=== PATIENT | male | born 1955 | race Caucasian/White ===

== ENCOUNTER 2017-01-08 05:35 | Inpatient (IN) | payer MEDICARE, OTHER ==
[2017-01-04 16:35] LABS: % IMMATURE GRANULYOCYTES 0.5 % (0.0-1.1); ABSOLUTE IMMATURE GRANULOCYTES 0.03 10^3/uL (0.00-0.10); ADD DIFF? NO; ADD MORPH? NO; ADD SCAN? NO; ATYPICAL LYMPHOCYTE FLAG 0 (0-99); FRAGMENT RBC FLAG 0 (0-99); HEMATOCRIT 51.5 % (40.0-51.0); LEFT SHIFT FLG 0 (0-99); LIPEMIA HEMOLYSIS FLAG 90 (0-99); MEAN CELL HEMOGLOBIN 32.7 pg (27.9-34.1); MEAN CELL VOLUME 93.6 fL (81.5-99.8); MEAN PLATELET VOLUME 9.1 fL (8.7-11.7); PLATELET CLUMPS FLAG 0 (0-99); PLATELET COUNT 174 10^3/uL (150-400); RED CELL DISTRIBUTION WIDTH 12.8 % (11.5-15.2)
[2017-01-04 17:08] LABS: ANION GAP 11 mEq/L (8-16); CALCIUM 9.2 mg/dL (8.5-10.4); CARBON DIOXIDE 28 mEq/l (22-31); CHLORIDE 99 mEq/L (97-110); CREATININE 1.2 mg/dL (0.7-1.3); GLOMERULAR FILTRATION RATE > 60; GLUCOSE 108 mg/dL (70-100); POTASSIUM 4.5 mEq/L (3.5-5.2); SODIUM 138 mEq/L (134-144)
--- NOTE | 2017-01-07 15:06 | GHP ---
[f rep st] PREOP HISTORY AND PHYSICAL DATE OF ADMISSION: 01/08/2017 He will be an a.m. admission [facility] 08, 2017. PROBLEM: Left hip arthritis. HISTORY OF PRESENT ILLNESS: The patient is a 61-year-old man admitted for a left total hip arthropl asty. He has had a 2 to 3 month history of severe bilateral hip pain. His left hip is more painful than the right. He is having daily pain and night pain. He is walking with a cane. Ambulation is difficult. His activities of daily living are significantly restricted because of his hip pain. Darrell omalley has trouble putting on shoes and socks on the left foot. PAST MEDICAL HISTORY: He has chronic pain syndrome secondary to chronic back pain. In 2013, he had a pulmonary embolism. No history of heart disease, stents, hepatitis. He does not have sleep apne a, but he uses oxygen at night. CURRENT MEDICATIONS: Testosterone gel. He uses extended release morphine and oxycodone for chronic back pain. DRUG ALLERGIES: None. METAL ALLERGY: None. LATEX ALLERGY: None. PAST SURGICAL HISTORY: He has a left total knee arthroplasty. SOCIAL HISTORY: The patient is . He does not smoke cigarettes. He occasionally drinks alc ohol. He is retired on disability. He lives in [place], but he is staying with a friend calixto gomez [place]. FAMILY HISTORY: Positive for diabetes. PHYSICAL EXAMINATION: VITAL SIGNS: Height 6 feet 2 inches. Weight 210 pounds. BMI 27. HEENT: E yes: Conjunctivae and sclerae are clear. Pupils are round and reactive. Mouth: Good oral hygiene . No loose teeth. CHEST: Clear. HEART: Regular rhythm. No murmurs. EXTREMITIES: Pertinent fi ndings limited to his left hip. He has full hip extension, 90 degrees of flexion. External rotatio n 20 degrees. Internal rotation 0 degrees. Abduction 20 degrees. He has a lot of pain at the extr emes of motion. IMAGING: His films show severe bilateral hip degenerative arthritis. His right hip is slightly armond rter than the left. He is bone on bone in both hips. He has a degenerative cyst in his right femor al head. IMPRESSION ON ADMISSION: 1. Bilateral hip degenerative arthritis. He is prepared for a left total hip arthroplasty. 2. Chronic pain syndrome secondary to his back. 3. History of pulmonary embolism. 4. Status post left total knee arthroplasty. 5. The patient uses supplemental oxygen at night. PLAN: He will undergo a left total hip arthroplasty. The surgery has been described to him, includ ing the risks, complications, expectations, and recovery time. I have talked to him about the risk of dislocation, leg length inequality, infection, and sciatic nerve injury. He understands that he is relatively young for a total hip arthroplasty, and might need revision surgery in his future. I intend to lengthen his left leg and I will make up the length when I do his opposite leg in the near future. I will be managing his postoperative pain, but once he is out of the postoperative period, Dr. Dennis Mendoza, in [place], will resume management of his chronic pain. All his questions have been answered, and he consents to surgery. Copy requested to: Dr. Dennis Mendoza [place], [place] /[id number]/MODL
[2017-01-08] MEDS ORDERED: NS IV ONE (06:00)
[2017-01-08] MEDS ORDERED: ACETAMINOPHEN 325 MG TAB PO ONE (06:00)
[2017-01-08] MEDS ORDERED: DEXAMETHASONE 4 MG/ML VIAL IVP ONE (06:00)
[2017-01-08] MEDS ORDERED: POVIDONE-IODINE 20 ML in SODIUM CL IRRIG SOLUTION 500 ML IRR ONE (06:00)
[2017-01-08] MEDS ORDERED: CEFAZOLIN 2 GM/DEXTR 100 ML IV ONE (06:00)
[2017-01-08] MEDS ORDERED: FAMOTIDINE 20 MG TAB PO ONE (06:00)
[2017-01-08] MEDS ORDERED: TRANEXAMIC ACID IV ONE (06:00)
[2017-01-08] MEDS ORDERED: ROPI/epiNEPH/KETOROLAC JOINT COCKTAIL IU ONE (06:00)
[2017-01-08] MEDS ORDERED: CHLORHEXIDINE GLUC HIBICLENS 118 ML BTL TP ONE (06:00)
[2017-01-08] MEDS ORDERED: LIDOCAINE 1% 5 ML SDV ONE (06:19)
[2017-01-08] MEDS ORDERED: SKIN ADHESIVE (DERMABOND) 1 EACH TP ONE (06:45)
[2017-01-08] MEDS ORDERED: ceFAZolin 1 GM/5 ML SYR ONE (06:46)
[2017-01-08] MEDS ORDERED: MIDAZOLAM 2 MG/2 ML VIAL ONE (07:06)
[2017-01-08] MEDS ORDERED: fentaNYL 100 MCG/2 ML INJ ONE ×4 (07:07→09:21)
[2017-01-08] MEDS ORDERED: PROPOFOL 200 MG/20 ML VIAL ONE (07:07)
[2017-01-08] MEDS ORDERED: PROPOFOL/EMULSION 500 MG/50 ML BOTTLE IV ONE ×5 (07:07→08:30)
[2017-01-08] MEDS ORDERED: ONDANSETRON 4 MG/2 ML VIAL ONE (08:11)
[2017-01-08] MEDS ORDERED: HYDROmorphONE/DILAUDID 2 MG/ML INJ ONE ×2 (08:49→09:21)
--- NOTE | 2017-01-08 08:55 | POSTOPPROG ---
Post Op Note Date of Operation: 01/08/17 Surgeon: Marvel Lopez [employer] Technician: Sandra/Puneet Anesthesiologist: Martínez Anesthesia: IV Sedation, Spinal Post-op Diagnosis: L hip arthritis Procedure: L JESUS Inf/Abcess present in the surg proc area at time of surgery?: No EBL: [id number]
[2017-01-08] MEDS ORDERED: FUROSEMIDE 20 MG TAB PO PRN (09:14)
[2017-01-08] MEDS ORDERED: POLYETHYLENE GLYCOL 3350 17 GM PKT PO PRN (09:15)
[2017-01-08] MEDS ORDERED: LACTULOSE 20 GM/30 ML UDCUP PO PRN (09:15)
[2017-01-08] MEDS ORDERED: ONDANSETRON 4 MG/2 ML VIAL IVP PRN (09:15)
[2017-01-08] MEDS ORDERED: PHARMACY PAIN CONSULT 1 EA MISC PRN (09:15)
[2017-01-08] MEDS ORDERED: MAGNESIUM HYDROXIDE 30 ML UDCUP PO PRN (09:15)
[2017-01-08] MEDS ORDERED: METOCLOPRAMIDE 10 MG/2 ML VIAL IVP PRN (09:15)
[2017-01-08] MEDS ORDERED: DIPHENOXYLATE/ATROPINE LOMOTIL 1 TAB PO PRN (09:15)
[2017-01-08] MEDS ORDERED: ONDANSETRON DISINTEGRATING 4 MG TAB PO PRN (09:15)
[2017-01-08] MEDS ORDERED: NS 500 ML IV PRN (09:15)
[2017-01-08] MEDS ORDERED: PROMETHAZINE HCL 25 MG SUPPR PR PRN (09:15)
[2017-01-08] MEDS ORDERED: TEMAZEPAM 15 MG CAP PO PRN (09:15)
[2017-01-08] MEDS ORDERED: BISACODYL 10 MG SUPP PR PRN (09:15)
[2017-01-08] MEDS ORDERED: diphenhydrAMINE 25 MG CAP PO PRN (09:15)
[2017-01-08] MEDS ORDERED: LR 1,000 ML IV SCH (09:30)
[2017-01-08] MEDS ORDERED: KETOROLAC 30 MG/1 ML SDV ONE (09:34)
--- NOTE | 2017-01-08 10:04 | GOP ---
[f rep st] OPERATIVE REPORT DATE OF OPERATION: 01/08/2017 SURGEON: Marvel Lopez MD APARTMENT LOCATOR: Tay Flores, TUBE WORKER and Reji Teixeira, PAC. ANESTHESIA: Combination of Marcaine, spinal, and IV sedation ANESTHESIOLOGIST: Mundo Soliz MD. PREOPERATIVE DIAGNOSIS: Left hip severe arthritis. POSTOPERATIVE DIAGNOSIS: Left hip severe arthritis. PROCEDURE PERFORMED: Left total hip arthroplasty, Oxinium femoral head on highly cross-linked polye thylene cup liner. FINDINGS: DESCRIPTION OF PROCEDURE: The patient was given 2 g of IV Ancef preoperatively within 60 minutes of surgery. He also received IV tranexamic acid at a dose of 20 mg/kg. He was placed on the operatin g room table and given spinal anesthesia with Marcaine by Dr. Soliz. He was then placed supine and given IV sedation. A Chauhan catheter was not used. A ANT stocking and SCD were applied to the nonop erative leg. He was rolled to the right lateral decubitus position. The position was secured with the pegboard table attachment. An axillary roll was used, and all pressure points were carefully pa dded. I was careful to lock his pelvis in a rigid vertical position. His perineum was isolated wit h plastic adhesive drapes. The left hip and left lower extremity were prepped with ChloraPrep. The y were draped free using sterile sheets, stockinette, and Ioban plastic drapes. The World Health Organization time-out was performed to verify the correct surgical side and the cor rect patient identity. The [place] time-out was also performed. I made a 5-inch straight oblique posterolateral hip skin incision. The subcutaneous tissues were sh arply divided, and hemostasis was obtained using electrocautery. His fascia juan pablo was identified. I split a short portion of the fascia juan pablo along the axis of its fibers. I then curved posteriorly a nd proximally and split the fascia of the gluteus hilda and bluntly split the muscle fibers in airam e with their orientation. The Charnley self-retaining retractor was inserted. The sciatic nerve wa s located, partially exposed and protected throughout the procedure. The external rotators and the posterior hip capsule were divided as separate layers at the base of the femoral neck, tagged, and r eflected posteriorly. I left the quadratus intact. A smooth 8-inch Steinmann pin was inserted vert ically into the ilium superior to the acetabulum. An 8-inch drill bit was inserted vertically into the greater trochanter and parallel to the first pin. The distance between the 2 was measured for l eg length reference. His femoral head was dislocated posteriorly. Severe degenerative changes were present on the femoral head. The femoral neck was osteotomized at the appropriate level and inclin ation. I was careful to preserve all the posterior capsule and most of the anterior capsule. The remnant o f his damaged labrum was excised. I prepared the femur first. This allowed me to vat skimmer the amount of natural femoral neck anteversion. This, in turn, allowed me to later determine the correct amoun t of cup anteversion. He had approximately 10 degrees of natural femoral neck anteversion. The can al was opened laterally with a box chisel. I reamed and broached sequentially up to size 13. I use d a size 13 broach as a trial stem. I was careful to lateralize adequately. Appropriate retractors were inserted to expose the acetabulum. The acetabulum was reamed sequential ly up to 55 mm. I selected a 56 mm Lincoln and Nephew solid backed hemispherical shell. This was tap ped securely into place in the proper degree of inclination and anteversion. I used the transverse acetabular ligament and other acetabular bony landmarks to help me properly orient the cup. I inser ant the screw-in metal dome hole plug. I performed a series of trial reductions to determine length and stability. I concluded that the si ze 13 stem with a +4 mm neck length, a 36 mm head, and a 20-degree lip trial liner gave me the prope r combination of appropriate length and good anterior and posterior stability. I was intentionally lengthening him to make him more stable. I intend to do his other hip in the near future, and I nader l regain that length. The 20-degree lipped Lincoln and Nephew R3 highly cross-linked polyethylene liner was inserted and tap ped securely into place. I selected a Lincoln and Nephew Synergy stem, and size 13 with standard offs et. This was inserted press-fit and was very tight. I did 1 final trial reduction and confirmed th at the +8 mm neck length with a 36 mm head was the proper combination. The Lincoln and Nephew Oxinium head with an outside diameter of 36 mm and a neck length of +4 mm was tapped securely onto the kimberly n trunnion. His acetabulum was irrigated and cleaned, and hip was reduced 1 final time. He had exc ellent anterior and posterior stability and appropriate lengthening. 40 mL of a joint anesthetic cocktail were injected into the capsule, the deep musculature, and the s ubcutaneous tissues along the skin edges. The joint was thoroughly irrigated 1 final time with a di lute Betadine solution. His sciatic nerve was reinspected and looked unharmed. The external rotato rs and the posterior hip capsule were repaired in separate layers with #2 FiberWire sutures through drill holes in the greater trochanter. This provided a strong posterior capsular and external rotat or repair. The fascia juan pablo was repaired first with several [id number] #2 FiberWire sutures fol lowed by a running #2 barbed Ethicon Stratafix PDO suture. The subcutaneous tissues were closed wit h a running 0 barbed Ethicon Stratafix Monoderm suture. The skin was closed with a running 3-0 kiel ed Ethicon Stratafix Monoderm subcuticular suture. Skin edges reapproximated and sealed with Dermab ond glue. The wound was covered with a strip of Telfa, and everything was held in place with a piec e of clear plastic Tegaderm. A long-leg ANT stocking and SCD were applied to the left lower extremity. He wore a stocking and SC D on the opposite leg during the procedure. An abduction pillow was placed between his knees. He w as awakened from anesthesia and rolled to the supine position on his [facility]. He was taken to PACU in satisfactory condition. There were no recognized intraoperative complications. The estimated blood loss was about 400 mL. The sponge and needle count were correct on 2 occasions. I used a Lincoln and Nephew R3 solid-backed hemispherical shell with an outside diameter of 56 mm. Th e liner was a Lincoln and Nephew R3 twenty-degree lipped highly cross-linked liner with an inside diam eter of 36 mm. The femoral component was a standard offset Lincoln and Nephew Synergy stem in a size 13 and press-fit. The femoral head was a Lincoln and Nephew Oxinium head with a +4 mm neck length and a 36 mm outside diameter. Tay Flores and John Teixeira acted as surgical first assistants. Their assistance was a medical necessity. Copy requested to: Dr. Dennis Mendoza [place] /[id number]/MODL
[2017-01-08] MEDS: CYCLOBENZAPRINE 10 MG TAB PO PRN ×2 (10:52→19:01)
[2017-01-08] MEDS: TRANEXAMIC ACID 650 MG TAB PO SCH ×3 (11:15→22:23)
[2017-01-08] MEDS: traMADol 50 MG TAB PO PRN ×2 (11:15→17:33)
[2017-01-08] MEDS: ACETAMINOPHEN 325 MG TAB PO SCH ×2 (11:16→17:32)
[2017-01-08] MEDS ORDERED: POTASSIUM CL 20 MEQ TAB PO PRN (11:30)
[2017-01-08] MEDS: ceFAZolin 2 GM/DEXTROSE 100 ML IV SCH ×2 (14:55→22:23)
[2017-01-08] MEDS: KETOROLAC 30 MG/1 ML SDV IVP PRN (16:28)
[2017-01-08] MEDS: FAMOTIDINE 20 MG TAB PO SCH (20:22)
[2017-01-08] MEDS: morphINE SR 30 MG TAB PO SCH (20:23)
[2017-01-08] MEDS: SENNOSIDES/DOCUSATE SODIUM TAB PO SCH (20:24)
[2017-01-08] MEDS: ASPIRIN 325 MG TAB PO SCH (20:30)
[2017-01-09] MEDS: ACETAMINOPHEN 325 MG TAB PO SCH ×3 (00:21→12:17)
[2017-01-09] MEDS: KETOROLAC 30 MG/1 ML SDV IVP PRN ×3 (00:27→12:18)
[2017-01-09] MEDS: traMADol 50 MG TAB PO PRN ×3 (00:27→12:17)
[2017-01-09] MEDS: CYCLOBENZAPRINE 10 MG TAB PO PRN ×2 (03:10→12:17)
[2017-01-09 05:25] LABS: HEMATOCRIT 40.8 % (40.0-51.0); HEMOGLOBIN 14.1 g/dL (13.7-17.5)
[2017-01-09 07:24] VITALS: BP 122/81; PULSE 86; RESP 14; TEMP 97.5; O2SAT 96
[2017-01-09] MEDS: SENNOSIDES/DOCUSATE SODIUM TAB PO SCH (07:33)
[2017-01-09] MEDS: TRANEXAMIC ACID 650 MG TAB PO SCH (07:34)
[2017-01-09] MEDS: morphINE SR 30 MG TAB PO SCH (07:35)
[2017-01-09] MEDS: ASPIRIN 325 MG TAB PO SCH (07:35)
[2017-01-09] MEDS: FAMOTIDINE 20 MG TAB PO SCH (07:36)
[2017-01-09] MEDS ORDERED: Herbals/Supplements -Info Only PO SCH (09:00)
[2017-01-09] MEDS ORDERED: MULTIVITAMINS 1 EACH TAB PO SCH (09:00)
[2017-01-09] MEDS ORDERED: FERROUS SULFATE 140 MG TAB.ER PO SCH (09:00)
[2017-01-09] MEDS ORDERED: TESTOSTERONE TD SCH (09:00)
--- NOTE | 2017-01-09 09:32 | SOAPPROG ---
SOAP Progress Note Assessment/Plan: Assessment: Afebrile. Moderate pain. Up and walking in draper. H/H is ok. Sciatic nerve intact. Films look good. Dsg is dry. Plan:Up with PT today. Home later today to home or SNF. 01/09/17 09:28 Objective: Vital Signs Temp Pulse Resp BP Pulse Ox 36.4 C 86 14 122/81 H 96 01/09/17 07:23 01/09/17 07:23 01/09/17 07:23 01/09/17 07:23 01/09/17 07:23 Laboratory Results 01/09/17 04:56 01/04/17 16:15 01/08/17 01/09/17 01/10/17 05:59 05:59 05:59 Intake Total 2820 Output Total 1050 Balance 1770 ICD10 Worksheet Patient Problems: Problems Problem Status Onset Osteoarthritis of left hip Acute
--- NOTE | 2017-01-09 10:02 | GDS ---
[f rep st] DISCHARGE SUMMARY ADMISSION DIAGNOSIS: Left hip severe degenerative arthritis. DISCHARGE DIAGNOSIS: Left hip severe degenerative arthritis. OPERATION PERFORMED: January 08, 2017, a left total hip arthroplasty. POSTOPERATIVE COMPLICATIONS: None. CONDITION ON DISCHARGE: Improved. DESCRIPTION OF HOSPITAL COURSE: The patient was admitted to the hospital on the morning of surgery. His admission hemoglobin and hematocrit were 18 and 51.5. BUN and creatinine were 16 and 1.2. Th e same day under a combination of Marcaine spinal and IV sedation, he underwent a left total hip art hroplasty. Postoperatively, he had a lot of pain. He has chronic pain syndrome secondary to his ba ck and is accustomed to taking large doses of narcotics. He was treated with multimodal DVT prophyl axis including aspirin. On the 1st postoperative day, his hemoglobin and hematocrit were 14.1 and 4 0.8. He did not receive any transfused blood. He was seen by Physical Therapy and made satisfactor y progress. DISPOSITION: The patient is either going to be discharged to his home or to a skilled rehab facilit y. He may progress to full weightbearing on the left as tolerated. Use an abduction pillow in bed for 3 weeks. Continue aspirin 325 mg p.o. daily for 21 days. He has prescription for oxycodone and tramadol for pain control. He will remain on his normal doses of oxycodone and OxyContin for his c hronic back pain. I will see him back in the office on January 28, 2017. If there are any problems, he is to call me at the office. Copy requested to: Dr. Dennis Mendoza [place], [place] /[id number]/JOSEL
--- NOTE | 2017-01-09 11:58 | PDIAF ---
- Diagnosis Diagnosis: left hip arthritis Code Status: Full Code - Medication Management Discharge Medications: Medications to Continue on Transfer Furosemide [Lasix 20 MG (*)] 20 mg PO DAILY PRN 01/02/17 [Last Taken 12/28/16] Herbals/Supplements -Info Only 1 ea PO DAILY 01/02/17 [Last Taken 12/28/16] Multivitamins [Multivitamin (*)] 1 each PO DAILY 01/02/17 [Last Taken 12/28/16] Potassium Chloride [K-Tab ER] 40 meq PO DAILY PRN 01/02/17 [Last Taken 01/07/17] Testosterone [Androgel 1% pump] 1 lissette TD DAILY 01/02/17 [Last Taken 01/05/17] morphINE SR [MS Contin/Oramorph SR 30 mg (*)] 30 mg PO BID 01/02/17 [Last Taken 01/05/17] oxyCODONE IR [Oxycodone Ir (*)] 30 mg PO 5XD PRN 01/02/17 [Last Taken 01/08/17] Acetaminophen [Tylenol 325mg (*)] 650 mg PO Q6HRS #0 tab 01/09/17 [Last Taken Unknown] Aspirin [Aspirin 325 mg (*)] 325 mg PO DAILY #21 tab 01/09/17 [Last Taken Unknown] Ferrous Sulfate [Slow Fe 140 MG (*)] 140 mg PO DAILY #30 tab.er 01/09/17 [Last Taken Unknown] traMADol [Ultram 50 mg (*)] 50 mg PO Q6HRS PRN #0 tab 01/09/17 [Last Taken Unknown] Discharge Medications: Refer to the Discharge Home Medication list for PRN reason. PICC Care - Routine: N/A - Orders Services needed: Physical Therapy (at SNF) Diet Recommendation: no restrictions on diet Diet Texture: Regular Texture Diet Chauhan: Not applicable Nam Stockings Discontinue Date: 1 week Wound Care Instructions: keep clean and dry. You may shower. Activity/Weight Bearing Restrictions: as tolerated. Do not flex the hip past 90 degrees x 3 weeks. Additional: follow up in the office in 3 weeks as scheduled. - Follow Up Care Current Providers and Referrals: SONAM NASCIMENTO [Other] Marvel Lopez MD [Medical Doctor] - 01/28/17 11:00 am
== END 2017-01-09 14:09 | disposition home or self-care (01) | DRG 470 ==
LOC: F3N 05:35
PROVIDERS: ADMIT Orthopaedic Surgery; ATTEND Orthopaedic Surgery
PROC: 0SRB04Z Replacement of Left Hip Joint with Ceramic on Polyethylene Synthetic Substitute, Open Approach (ICD-10-PCS; principal; 2017-01-08 07:15)
DX: M16.0 Bilateral primary osteoarthritis of hip (principal); Z96.652 Presence of left artificial knee joint; Z86.711 Personal history of pulmonary embolism; G89.29 Other chronic pain; M54.9 Dorsalgia, unspecified
CPT/HCPCS: 97116-GP; 97162-GP; 97165-GO; 97530-GP; 97535-GO; G8978-GP-CK; G8979-GP-CI; G8980-GP-CJ; G8987-GO-CJ; G8988-GO-CI; G8989-GO-CJ; J0171; J0690; J1100; J1170; J1885; J2250; J2405; J2704; J2795; J3010

== ENCOUNTER 2017-01-18 10:09 | Inpatient (IN) | payer OTHER ==
[2017-01-18 10:54] LABS: INR 1.06 (0.83-1.16); PROTIME(PATIENT) 13.7 SEC (12.0-15.0)
[2017-01-18] MEDS ORDERED: NS 1,000 ML IV ONE (10:58)
[2017-01-18 11:00] LABS: % IMMATURE GRANULYOCYTES 0.3 % (0.0-1.1); ABSOLUTE IMMATURE GRANULOCYTES 0.02 10^3/uL (0.00-0.10); ADD DIFF? NO; ANION GAP 11 mEq/L (8-16); ATYPICAL LYMPHOCYTE FLAG 0 (0-99); CALCIUM 9.1 mg/dL (8.5-10.4); CARBON DIOXIDE 24 mEq/l (22-31); CHLORIDE 102 mEq/L (97-110); FRAGMENT RBC FLAG 0 (0-99); GLOMERULAR FILTRATION RATE > 60; GLUCOSE 123 mg/dL (70-100); HEMATOCRIT 44.3 % (40.0-51.0); HEMOGLOBIN 15.4 g/dL (13.7-17.5); LEFT SHIFT FLG 0 (0-99); MEAN CELL HEMOGLOBIN 32.4 pg (27.9-34.1); MEAN CELL HEMOGLOBIN CONCENTR. 34.8 g/dL (32.4-36.7); MEAN CELL VOLUME 93.3 fL (81.5-99.8); PLATELET COUNT 364 10^3/uL (150-400); POTASSIUM 4.4 mEq/L (3.5-5.2); RED BLOOD CELL COUNT 4.75 10^6/uL (4.40-6.38); RED CELL DISTRIBUTION WIDTH 12.9 % (11.5-15.2); SODIUM 137 mEq/L (134-144)
[2017-01-18 11:01] LABS: ADD MORPH? NO; ADD SCAN? NO; LIPEMIA HEMOLYSIS FLAG 90 (0-99); PLATELET CLUMPS FLAG 20 (0-99)
[2017-01-18] MEDS ORDERED: IOPAMIDOL (ISOVUE 370) 100 ML BTL IV ONE (11:20)
[2017-01-18] MEDS ORDERED: ENOXAPARIN 100 MG/ML SYR SC ONE (11:28)
--- NOTE | 2017-01-18 12:49 | EDPHY ---
H & P Time Seen by Provider: 01/18/17 10:51 HPI/ROS: Chief complaint. Left calf pain fast heart rate HPI. 61-year-old male left hip replacement January 08. Left calf cramps this morning. He also noted shortness of breath and fast heart rate this morning. Otherwise no chest pain. No fever. Does have a history of previous PE. Sent home on low-dose Lovenox. ROS Constitutional. no fever/chills, no weakness Eyes. no problems with vision ENT. no sore throat, no nasal drainage Cardiovascular. Fast heart rate without chest pain Respiratory. Shortness of breath Abdominal. no abdominal pain, no nausea/vomiting, no diarrhea . no problems urinating MS. Left calf pain and bruising Skin. no rash Lymph. no swollen glands Neuro. no headache, no dizziness, no difficulty walking or with speech Past Medical/Surgical History: Recent hip replacement, chronic pain, pulmonary embolus Social History: Divorce, nonsmoker, no alcohol Smoking Status: Former smoker Physical Exam: General Appearance: Alert well-developed male moderate distress vital signs show a heart rate 140 Eyes: Pupils equal and round no pallor or injection. ENT, Mouth: Mucous membranes are moist. Respiratory: There are no retractions, lungs are clear to auscultation. Cardiovascular: Regular rate and rhythm with tachycardia Gastrointestinal: Abdomen is soft and nontender, no masses, bowel sounds normal. Neurological: Awake and alert, sensory and motor exams grossly normal. Skin: Warm and dry, no rashes. Musculoskeletal: Neck is supple nontender. Extremities left hip incision is without erythema. It is indurated and tender. Bruising and swelling to the left calf Psychiatric: Patient is oriented X 3, there is no agitation. Constitutional: Initial Vital Signs Temperature (C) 36.6 C 01/18/17 10:11 Heart Rate 140 H 01/18/17 10:11 Respiratory Rate 18 01/18/17 10:11 Blood Pressure 121/76 H 01/18/17 10:11 O2 Sat (%) 93 01/18/17 10:11 O2 Delivery Mode Room Air O2 (L/minute) 2 Allergies/Adverse Reactions: No Known Allergies Allergy (Unverified 01/02/17 12:15) Home Medications: Medication Instructions Recorded Furosemide [Lasix 20 MG (*)] 20 mg PO DAILY PRN 01/02/17 Herbals/Supplements -Info Only 1 ea PO DAILY 01/02/17 Multivitamins [Multivitamin (*)] 1 each PO DAILY 01/02/17 Potassium Chloride [K-Tab ER] 40 meq PO DAILY PRN 01/02/17 Testosterone [Androgel 1% pump] 1 lissette TD DAILY 01/02/17 morphINE SR [MS Contin/Oramorph SR 30 mg PO BID 01/02/17 30 mg (*)] oxyCODONE IR [Oxycodone Ir (*)] 30 mg PO 5XD PRN 01/02/17 Acetaminophen [Tylenol 325mg (*)] 650 mg PO Q6HRS #0 tab 01/09/17 Aspirin [Aspirin 325 mg (*)] 325 mg PO DAILY #21 tab 01/09/17 Ferrous Sulfate [Slow Fe 140 MG 140 mg PO DAILY #30 tab.er 01/09/17 (*)] traMADol [Ultram 50 mg (*)] 50 mg PO Q6HRS PRN #0 tab 01/09/17 Medical Decision Making - Diagnostics EKG Interpretation: EKG interpreted by me shows sinus tachycardia with normal interval and axis. QRS is normal there is no significant ST elevation or depression. The rate 122 Imaging: Imaging Impressions Chest X-Ray 01/18/17 10:52 Impression: 1. No pneumonia or failure. 2. There is a right lower lung zone nodule. This should be evaluated on the subsequent CT pulmonary angiogram that has been ordered by Dr. Duncan. Chest/Thorax CTA 01/18/17 10:58 Impression: 1. Equivocal solitary upper lobe embolus in each lung. 2. Cardiomegaly with coronary artery disease but without failure. 3. Multiple splenic lesions of uncertain clinical significance. Results called to Dr. Duncan at 12:34 PM General information for patients regarding this examination can be found at [email or web address]. If you have questions or comments about this report, please contact me at (hospital) or [phone] (cell). Extremity Venous Study 01/18/17 10:58 Impression: No deep venous thrombosis left leg. Results called and discussed with Dr. eGe Duncan at 01/18/2017 12:26. Chest CT reviewed by me and discussed with Dr. Pimentel shows equivocal pulmonary embolus Ultrasound left lower extremity shows no evidence of DVT Procedures: IV normal saline, monitor Clinically the patient has pulmonary embolus and so he is give an additional 60 mg of Lovenox subcutaneously prior to CT ED Course/Re-evaluation: Re-evaluation patient is much more comfortable and stable. He has been given morphine for his leg pain. Current heart rate is 98. The patient now shows me that he is tender also in the left hip which does appear to be indurated but no evidence for obvious infection. We will order an ultrasound of this The patient and I discussed imaging and lab results. We discussed treatment plan including recommendation for admission. Patient expresses understanding and agrees I consulted and discussed case with Dr. Manning, hospitalist, who agrees to the admission Differential Diagnosis: Certainly I thought the patient had a pulmonary embolus. It appears that he may equivocal a have a PE. There is no evidence for DVT. I have considered infection as well. - Data Points Laboratory Results: Laboratory Results 01/18/17 10:35 01/18/17 10:35 01/18/17 01/18/17 01/18/17 10:40 10:35 10:35 WBC RBC Hgb Hct MCV MCH MCHC RDW Plt Count MPV Neut % (Auto) Lymph % (Auto) Bonner % (Auto) Eos % (Auto) Baso % (Auto) Nucleat RBC Rel Count Absolute Neuts (auto) Absolute Lymphs (auto) Absolute Monos (auto) Absolute Eos (auto) Absolute Basos (auto) Absolute Nucleated RBC Immature Gran % Immature Gran # PT 13.7 SEC SEC (12.0-15.0) INR 1.06 (0.83-1.16) D-Dimer 3.43 ug/mLFEU H ug/mLFEU (0.00-0.50) Sodium 137 mEq/L mEq/L (134-144) Potassium 4.4 mEq/L mEq/L (3.5-5.2) Chloride 102 mEq/L mEq/L (97-110) Carbon Dioxide 24 mEq/l mEq/l (22-31) Anion Gap 11 mEq/L mEq/L (8-16) BUN 15 mg/dL mg/dL (7-23) Creatinine 1.0 mg/dL mg/dL (0.7-1.3) Estimated GFR > 60 Glucose 123 mg/dL H mg/dL (70-100) Calcium 9.1 mg/dL mg/dL (8.5-10.4) Troponin I < 0.012 ng/mL ng/mL (0-0.034) 01/18/17 10:35 WBC 7.44 10^3/uL 10^3/uL (3.80-9.50) RBC 4.75 10^6/uL 10^6/uL (4.40-6.38) Hgb 15.4 g/dL g/dL (13.7-17.5) Hct 44.3 % % (40.0-51.0) MCV 93.3 fL fL (81.5-99.8) MCH 32.4 pg pg (27.9-34.1) MCHC 34.8 g/dL g/dL (32.4-36.7) RDW 12.9 % % (11.5-15.2) Plt Count 364 10^3/uL 10^3/uL (150-400) MPV 9.0 fL fL (8.7-11.7) Neut % (Auto) 70.4 % % (39.3-74.2) Lymph % (Auto) 20.2 % % (15.0-45.0) Bonner % (Auto) 7.9 % % (4.5-13.0) Eos % (Auto) 0.7 % % (0.6-7.6) Baso % (Auto) 0.5 % % (0.3-1.7) Nucleat RBC Rel Count 0.0 % % (0.0-0.2) Absolute Neuts (auto) 5.24 10^3/uL 10^3/uL (1.70-6.50) Absolute Lymphs (auto) 1.50 10^3/uL 10^3/uL (1.00-3.00) Absolute Monos (auto) 0.59 10^3/uL 10^3/uL (0.30-0.80) Absolute Eos (auto) 0.05 10^3/uL 10^3/uL (0.03-0.40) Absolute Basos (auto) 0.04 10^3/uL 10^3/uL (0.02-0.10) Absolute Nucleated RBC 0.00 10^3/uL 10^3/uL (0-0.01) Immature Gran % 0.3 % % (0.0-1.1) Immature Gran # 0.02 10^3/uL 10^3/uL (0.00-0.10) PT INR D-Dimer Sodium Potassium Chloride Carbon Dioxide Anion Gap BUN Creatinine Estimated GFR Glucose Calcium Troponin I Medications Given: Discontinued Medications Enoxaparin Sodium (Lovenox) 100 mg SC EDNOW ONE Stop: 01/18/17 11:29 Last Admin: 01/18/17 12:18 Dose: 100 mg Sodium Chloride (Ns) 1,000 mls @ 0 mls/hr IV ONCE ONE PRN Reason: Wide Open Stop: 01/18/17 10:59 Last Admin: 01/18/17 11:18 Dose: 1,000 mls Morphine Sulfate (Morphine) 6 mg IVP EDNOW ONE Stop: 01/18/17 11:00 Last Admin: 01/18/17 11:17 Dose: 6 mg Departure - Departure Disposition: [facility] Inpatient Acute Clinical Impression: Pulmonary embolus Qualifiers: Pulmonary embolism type: other Chronicity: acute Acute cor pulmonale presence: without acute cor pulmonale Qualified Code(s): I26.99 - Other pulmonary embolism without acute cor pulmonale Condition: Fair Referrals: SONAM NASCIMENTO [Other] - As per Instructions
[2017-01-18] MEDS ORDERED: HYDROmorphONE/DILAUDID 1 MG/ML SYR ONE (13:16)
[2017-01-18] MEDS ORDERED: HYDROmorphONE/DILAUDID 1 MG/ML SYR IVP PRN ×2 (13:45→14:43)
--- NOTE | 2017-01-18 14:31 | CPEKG ---
Heart Rate: 122 RR Interval: 492 P-R Interval: 160 QRSD Interval: 90 QT Interval: 308 QTC Interval: 439 P [place]: 67 QRS [place]: 68 T Wave [place]: -15 EKG Severity - ABNORMAL ECG - EKG Impression: SINUS TACHYCARDIA EKG Impression: PROBABLE LEFT ATRIAL ABNORMALITY EKG Impression: NONSPECIFIC T ABNORMALITIES, INFERIOR LEADS Electronically Signed By: Gee Duncan 18-Jan-2017 15:26:14
[2017-01-18] MEDS ORDERED: traMADol 50 MG TAB PO PRN (14:42)
[2017-01-18] MEDS ORDERED: POTASSIUM CHLORIDE 40 MEQ PO PRN (14:42)
[2017-01-18] MEDS ORDERED: LORazepam 2 MG/ML INJ IVP PRN (14:43)
[2017-01-18] MEDS ORDERED: ALBUTEROL 3 ML DEYVIAL IH PRN (14:43)
[2017-01-18] MEDS ORDERED: ONDANSETRON DISINTEGRATING 4 MG TAB PO PRN (14:43)
[2017-01-18] MEDS ORDERED: ACETAMINOPHEN 325 MG TAB PO PRN (14:43)
[2017-01-18] MEDS ORDERED: ONDANSETRON 4 MG/2 ML VIAL IVP PRN (14:43)
[2017-01-18] MEDS ORDERED: NS 1,000 ML IV SCH (14:45)
[2017-01-18] MEDS ORDERED: POTASSIUM CL 20 MEQ TAB PO PRN (15:13)
[2017-01-18] MEDS: morphINE SR 30 MG TAB PO SCH ×2 (15:14→20:09)
[2017-01-18] MEDS: oxyCODONE IR 5 MG TAB PO PRN ×2 (15:15→20:08)
[2017-01-18] MEDS ORDERED: WARFARIN SODIUM 5 MG TAB PO ONE (15:30)
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
[2017-01-18] MEDS: HYDROmorphONE/DILAUDID 1 MG/ML SYR IVP PRN ×2 (18:23→22:00)
[2017-01-18] MEDS: METHOCARBAMOL 750 MG TAB PO PRN (18:55)
[2017-01-18] MEDS: ENOXAPARIN 100 MG/ML SYR SC SCH (20:08)
[2017-01-18] MEDS: DOCUSATE SODIUM 100 MG CAP PO SCH (20:09)
[2017-01-18] MEDS: ZOLPIDEM TARTRATE 5 MG TAB PO PRN (22:01)
[2017-01-19] MEDS: oxyCODONE IR 5 MG TAB PO PRN ×4 (01:14→15:22)
[2017-01-19] MEDS: LORazepam 0.5 MG TAB PO PRN ×2 (01:15→10:55)
[2017-01-19] MEDS: METHOCARBAMOL 750 MG TAB PO PRN ×2 (03:31→10:54)
[2017-01-19] MEDS: HYDROmorphONE/DILAUDID 1 MG/ML SYR IVP PRN ×4 (03:31→15:21)
[2017-01-19] MEDS: ZOLPIDEM TARTRATE 5 MG TAB PO PRN (03:32)
[2017-01-19 05:35] LABS: % IMMATURE GRANULYOCYTES 0.6 % (0.0-1.1); ABSOLUTE IMMATURE GRANULOCYTES 0.03 10^3/uL (0.00-0.10); ADD DIFF? NO; ADD MORPH? NO; ADD SCAN? NO; ATYPICAL LYMPHOCYTE FLAG 0 (0-99); FRAGMENT RBC FLAG 0 (0-99); HEMATOCRIT 39.3 % (40.0-51.0); HEMOGLOBIN 13.3 g/dL (13.7-17.5); LEFT SHIFT FLG 0 (0-99); LIPEMIA HEMOLYSIS FLAG 90 (0-99); MEAN CELL HEMOGLOBIN 32.4 pg (27.9-34.1); MEAN CELL HEMOGLOBIN CONCENTR. 33.8 g/dL (32.4-36.7); MEAN CELL VOLUME 95.6 fL (81.5-99.8); MEAN PLATELET VOLUME 9.1 fL (8.7-11.7); PLATELET CLUMPS FLAG 0 (0-99); PLATELET COUNT 284 10^3/uL (150-400); RED BLOOD CELL COUNT 4.11 10^6/uL (4.40-6.38); RED CELL DISTRIBUTION WIDTH 13.1 % (11.5-15.2)
[2017-01-19 05:54] LABS: ALANINE AMINOTRANSFERASE 39 IU/L (21-72); ALKALINE PHOSPHATASE 54 IU/L (38-126); ANION GAP 5 mEq/L (8-16); ASPARTATE AMINOTRANSFERASE 29 IU/L (17-59); BILIRUBIN,TOTAL 1.1 mg/dL (0.1-1.4); CALCIUM 8.4 mg/dL (8.5-10.4); CARBON DIOXIDE 26 mEq/l (22-31); CHLORIDE 107 mEq/L (97-110); CREATININE 0.9 mg/dL (0.7-1.3); GLOMERULAR FILTRATION RATE > 60; GLUCOSE 83 mg/dL (70-100); POTASSIUM 4.2 mEq/L (3.5-5.2); SODIUM 138 mEq/L (134-144)
[2017-01-19 07:17] VITALS: PULSE 95
[2017-01-19] MEDS: DOCUSATE SODIUM 100 MG CAP PO SCH (08:19)
[2017-01-19] MEDS: morphINE SR 30 MG TAB PO SCH (08:19)
[2017-01-19] MEDS: ENOXAPARIN 100 MG/ML SYR SC SCH (08:20)
[2017-01-19] MEDS ORDERED: MULTIVITAMINS W-MINERALS 1 EACH TAB PO SCH (09:00)
[2017-01-19] MEDS ORDERED: MULTIVITAMINS 1 EACH TAB PO SCH (09:00)
[2017-01-19 11:39] VITALS: BP 140/91; RESP 16; TEMP 98.9; O2SAT 96
--- NOTE | 2017-01-19 13:50 | GDS ---
[f rep st] DISCHARGE SUMMARY KNOWN ACUTE DIAGNOSES ON THIS ADMISSION: 1. Acute chest pain. No evidence of pulmonary embolus or cardiac ischemia. 2. Left leg pain secondary to muscle spasm, and status post left hip arthroplasty on January 08. 3. Pain syndrome, opioid dependent. 4. Nocturnal hypoxemia, chronic, on 1-2 L at night. CONSULTATION: Phone consultation with Pulmonary, and review of the CTA of the chest indicated that Pulmonary strongly doubt that there was evidence of a pulmonary embolus. PROCEDURES: CTA of the chest showed possible evidence of a pulmonary embolus in the upper lobes eric aterally. HOSPITAL COURSE: This is a 61-year-old male, who underwent a left hip arthroplasty on 01/08, and had been placed on Lovenox postoperatively. He had received 7 days of Lovenox 40 mg subcu, and 7 days P TA. On the day of admission, he experienced pain and aching in his left leg, had some shortness of breath, and maybe tachycardia. He was seen in the emergency department, where a CTA of the chest wa s equivocal for pulmonary embolus, but admitted presumptively under that diagnosis. Review of the x -rays and history with Pulmonary indicated that they strongly doubted this was a pulmonary embolus, and more likely secondary to muscle spasm and pain in his leg. The patient's oxygenation remained n ormal on room air. His heart rate was normal and stable. He had no chest pain, and vital signs oth erwise were normal. DISCHARGE MEDICATIONS: These will be the same as his admission medications, and can be reviewed in his EMR. The only addition will be Robaxin 750 mg p.o. q.i.d. for muscle spasm. He will be placed on Lovenox 40 mg subcu daily. PLAN: He will follow up with Dr. Marvel Lopez, his orthopedist, on 01/28. Note that he is also sche duled for a right hip arthroplasty in February. He will also follow up with his PCP as needed. TIME THE DISCHARGE REQUIRED: 40 minutes, greater than 50% to employment counselor and coordinate care, discuss t he matter with Pulmonary, and review the results with the patient. /[id number]/MODL
== END 2017-01-19 15:44 | disposition home or self-care (01) | DRG 313 ==
LOC: F3E 13:47 → INTOOBSV 14:47 → OBSVTOIN 14:47
PROVIDERS: ADMIT Internal Medicine; ATTEND Internal Medicine Pulmonary Disease
DX: R07.9 Chest pain, unspecified (principal); M62.838 Other muscle spasm; G89.4 Chronic pain syndrome; F11.20 Opioid dependence, uncomplicated; R09.02 Hypoxemia; Z96.642 Presence of left artificial hip joint; Z98.890 Other specified postprocedural states; Z99.81 Dependence on supplemental oxygen
CPT/HCPCS: 96374; J1170; J1650; Q9967

== ENCOUNTER 2017-02-05 11:15 | Inpatient (IN) | payer OTHER ==
--- NOTE | 2017-01-29 09:10 | GHP ---
[f rep st] PREOP HISTORY AND PHYSICAL DATE OF ADMISSION: 02/05/2017 He will be an a.m. admission for surgery on February 05, 2017. PROBLEM: Right hip degenerative arthritis. HISTORY OF PRESENT ILLNESS: The patient is a 61-year-old man admitted for a right total hip arthrop lasty. He has a 3-4 month history of severe bilateral hip pain. His left hip has been more painful than the right. He is having daily pain and night pain. He is walking with a cane. Ambulation is difficult. His activities of daily living are significantly restricted. I did his left total hip arthroplasty on January 08, 2017. He is admitted for a right total hip arthroplasty now. PAST MEDICAL HISTORY: He has chronic pain syndrome secondary to chronic back pain. In 2013, he had a pulmonary embolism. No history of heart disease, stents, or hepatitis. He does not have sleep a pnea but he uses supplemental oxygen at night. CURRENT MEDICATIONS: Testosterone gel. He uses extended-release morphine and oxycodone for chronic back pain. ALLERGIES: Drug allergies: None. Metal allergy: None. Latex allergy: None. PAST MEDICAL HISTORY: He has a left total knee arthroplasty. SOCIAL HISTORY: The patient is . He does not smoke cigarettes and occasionally drinks alco hol. He is retired on disability because of his back. He lives in [place] but he is stayi ng with a friend in [place]. FAMILY HISTORY: Positive for diabetes. PHYSICAL EXAMINATION: VITAL SIGNS: Height 6 feet 2 inches, weight 210 pounds. BMI 27. EYES: Con junctivae and sclerae are clear. Pupils are round and reactive. MOUTH: Good oral hygiene. No loo se teeth. CHEST: Clear. HEART: Regular rhythm. No murmurs. EXTREMITIES: Pertinent findings ar e limited to his right hip. He has full hip extension and 90 degrees of flexion. External rotation 20 degrees. Internal rotation 0 degrees. Abduction 20 degrees. The right hip is painful at the e xtremes of motion. IMAGING: Films show advanced degenerative arthritis of his right hip. He is bone on bone. Extensi ve osteophyte formation is present. His left total hip looks fine. IMPRESSION ON ADMISSION: 1. Right hip advanced degenerative arthritis. He is prepared for a right total hip arthroplasty. 2. Three weeks status post left total hip arthroplasty. 3. Chronic pain syndrome secondary to his spine. The surgery has been described to him including the risks, complications, expectations, and recovery time. I have discussed with him the risk of dislocation, leg-length inequality, sciatic nerve inju ry and infection. He understands that he is relatively young for a total hip replacement and might need revision surgery in the future. I have advised him with bilateral procedures, there can be mil d vpko-xh-yczi differences in the recovery and in the final result. He believes that his left leg is too long, and he wants me to lengthen him on the right, however, by measurement of his postop x-ray, I think he is already a couple of millimeters short on the left. Copy requested to: Dr. Dennis Mendoza [place], [place] /[id number]/MODL
[2017-02-27] MEDS ORDERED: ROPI/epiNEPH/KETOROLAC JOINT COCKTAIL IU ONE (06:00)
[2017-02-27] MEDS ORDERED: ACETAMINOPHEN 325 MG TAB PO ONE (06:00)
[2017-02-27] MEDS ORDERED: FAMOTIDINE 20 MG TAB PO ONE (06:00)
[2017-02-27] MEDS ORDERED: POVIDONE-IODINE 20 ML in SODIUM CL IRRIG SOLUTION 500 ML IRR ONE (06:00)
[2017-02-27] MEDS ORDERED: DEXAMETHASONE 4 MG/ML VIAL IVP ONE (06:00)
[2017-02-27] MEDS ORDERED: CEFAZOLIN 2 GM/DEXTR 100 ML IV ONE (06:00)
[2017-02-27] MEDS ORDERED: CHLORHEXIDINE GLUC HIBICLENS 118 ML BTL TP ONE (06:00)
[2017-02-27] MEDS ORDERED: TRANEXAMIC ACID 2,080 MG in NS 100 ML IV ONE (06:00)
[2017-02-27] MEDS ORDERED: FAMOTIDINE 20 MG TAB ONE (07:48)
[2017-02-27] MEDS ORDERED: ACETAMINOPHEN 325 MG TAB ONE (07:48)
[2017-02-27] MEDS ORDERED: CEFAZOLIN 2 GM/DEXTROSE/100 ML BAG IV ONE (07:48)
[2017-02-27] MEDS ORDERED: DEXAMETHASONE 4 MG/ML VIAL ONE (07:48)
[2017-02-27] MEDS ORDERED: LR 1,000 ML IV ONE (08:00)
[2017-02-27] MEDS ORDERED: LIDOCAINE 1% 5 ML SDV ID PRN (08:00)
[2017-02-27] MEDS ORDERED: MIDAZOLAM 2 MG/2 ML VIAL ONE (09:15)
[2017-02-27] MEDS ORDERED: PROPOFOL/EMULSION 500 MG/50 ML BOTTLE IV ONE ×2 (09:16→09:48)
[2017-02-27] MEDS ORDERED: ceFAZolin 1 GM/5 ML SYR ONE (09:30)
[2017-02-27] MEDS ORDERED: PHENYLEPHRINE HCL 100 MCG/ML SYR ONE (10:01)
[2017-02-27] MEDS ORDERED: PROPOFOL 200 MG/20 ML VIAL ONE (10:45)
--- NOTE | 2017-02-27 11:03 | POSTOPPROG ---
Post Op Note Date of Operation: 02/27/17 Surgeon: Marvel Lopez Grease Maker Head: Shantell Anesthesiologist: Teresa Anesthesia: IV Sedation, Spinal Post-op Diagnosis: R hip arthritis Procedure: R JESUS Inf/Abcess present in the surg proc area at time of surgery?: No EBL: 100-500
[2017-02-27] MEDS ORDERED: POTASSIUM CHLORIDE 40 MEQ PO PRN (11:07)
[2017-02-27] MEDS ORDERED: FUROSEMIDE 20 MG TAB PO PRN (11:07)
[2017-02-27] MEDS ORDERED: NS 500 ML IV PRN (11:09)
[2017-02-27] MEDS ORDERED: TEMAZEPAM 15 MG CAP PO PRN (11:09)
[2017-02-27] MEDS ORDERED: PROMETHAZINE HCL 25 MG/ML INJ IVP PRN (11:09)
[2017-02-27] MEDS ORDERED: MAGNESIUM HYDROXIDE 30 ML UDCUP PO PRN (11:09)
[2017-02-27] MEDS ORDERED: ONDANSETRON DISINTEGRATING 4 MG TAB PO PRN (11:09)
[2017-02-27] MEDS ORDERED: diphenhydrAMINE 25 MG CAP PO PRN (11:09)
[2017-02-27] MEDS ORDERED: LACTULOSE 20 GM/30 ML UDCUP PO PRN (11:09)
[2017-02-27] MEDS ORDERED: oxyCODONE IR 5 MG TAB PO PRN (11:09)
[2017-02-27] MEDS ORDERED: PHARMACY PAIN CONSULT 1 EA MISC PRN (11:09)
[2017-02-27] MEDS ORDERED: BISACODYL 10 MG SUPP PR PRN (11:09)
[2017-02-27] MEDS ORDERED: KETOROLAC 30 MG/1 ML SDV IVP PRN (11:09)
[2017-02-27] MEDS ORDERED: POLYETHYLENE GLYCOL 3350 17 GM PKT PO PRN (11:09)
[2017-02-27] MEDS ORDERED: traMADol 50 MG TAB PO PRN (11:09)
[2017-02-27] MEDS ORDERED: ONDANSETRON 4 MG/2 ML VIAL IVP PRN (11:09)
[2017-02-27] MEDS ORDERED: PROMETHAZINE HCL 25 MG SUPPR PR PRN (11:09)
[2017-02-27] MEDS ORDERED: METOCLOPRAMIDE 10 MG/2 ML VIAL IVP PRN (11:09)
[2017-02-27] MEDS ORDERED: CYCLOBENZAPRINE 10 MG TAB PO PRN (11:09)
[2017-02-27] MEDS ORDERED: DIPHENOXYLATE/ATROPINE LOMOTIL 1 TAB PO PRN (11:09)
[2017-02-27] MEDS ORDERED: LR 1,000 ML IV SCH (11:30)
--- NOTE | 2017-02-27 11:57 | GOP ---
[f rep st] OPERATIVE REPORT DATE OF OPERATION: 02/27/2017 SURGEON: Marvel Lopez MD FINAL INSPECTOR MOTORCYLES: 1. Tay Flores CFA. 2. Reji Teixeira PA-C. ANESTHESIA: A combination of Marcaine spinal and IV sedation. ANESTHESIOLOGIST: Elmer Moore MD PREOPERATIVE DIAGNOSIS: Right hip advanced degenerative arthritis. POSTOPERATIVE DIAGNOSIS: Right hip advanced degenerative arthritis. PROCEDURE PERFORMED: A right total hip arthroplasty, Oxinium femoral head on mqfaxj-qflzz-oxnqko po lyethylene cup liner. FINDINGS: DESCRIPTION OF PROCEDURE: The patient was given 2 g of IV Ancef preoperatively within 60 minutes of surgery. He also received IV tranexamic acid at a dose of 20 mg/kg. He was placed on the operatin g room table and given spinal anesthesia with Marcaine by Dr. Moore. He was then placed supine and given IV sedation. A Chauhan catheter was not used. He wore a ANT stocking and SCD on the nonoperati ve leg. He was rolled to the left lateral decubitus position. The position was secured with the pe gboard table attachment. An axillary roll was used and all pressure points were carefully padded. I was careful to lock his pelvis in a rigid vertical position. His perineum was isolated with plast ic adhesive drapes. The right hip and right lower extremity were prepped with ChloraPrep. They wer e draped free using sterile sheets, stockinette, and Ioban plastic drapes. The [employer] Organization time-out was performed to verify the correct surgical side and site, a nd the correct patient identity. The [place] time-out was also performed. I made a 6-inch straight oblique posterolateral hip skin incision. Subcutaneous tissues were sharpl y divided and hemostasis was obtained using electrocautery. His fascia juan pablo was identified and spli t along the axis of its fibers. I then curved posteriorly and proximally and split the fascia of th e gluteus hilda and bluntly split the muscle fibers in line with their orientation. The Charnley self-retaining retractor was inserted. His sciatic nerve was located, partially exposed and protect ed throughout the procedure. The external rotators and the posterior hip capsule were divided as se parate layers at the base of the femoral neck, tagged, and reflected posteriorly. A smooth 8-inch S teinmann pin was inserted vertically into the ilium superior to the acetabulum. An 1/8-inch drill b it was inserted vertically into the greater trochanter and parallel to the first pin. The distance between the two was measured for leg length reference. The femoral head was dislocated posteriorly. Severe degenerative changes were present on the femoral head. His femoral neck was osteotomized a t the appropriate level and inclination. I was careful to preserve all the posterior capsule and most of the anterior capsule. The remnant o f his damaged labrum was completely excised. I prepared the femur first. This allowed me to manager payment the amount of natural femoral neck anteversion . This, in turn, allowed me to later determine the correct amount of cup anteversion. He only had about 8 or 10 degrees of femoral neck anteversion. The canal was opened laterally with a box chisel . I reamed and broached sequentially up to a size 13. I used a size 13 broach as a trial stem. I was careful to lateralize adequately. Appropriate retractors were inserted to expose the acetabulum. The acetabulum was reamed sequential ly up to 57 mm. I selected a 58 mm Lincoln and Nephew R3 solid-backed hemispherical shell. This was tapped securely into place in the proper degree of inclination and anteversion. I used the transver se acetabular ligament and other acetabular bony landmarks to help me properly orient the cup. The fixation was very tight and I did not think supplemental screw fixation was necessary. I inserted t he screw-in metal dome hole plug. I performed a series of trial reductions to determine length and stability. I concluded that the si ze 13 stem with a +4 mm neck length and a 36 mm head with a 20-degree lip liner gave me the proper c ombination of appropriate length and good anterior and posterior stability. By measurement, I thoug ht the patient preoperatively was already a little bit long on the right side. However, he felt zeinab t his right leg was shorter than the left, and asked me to lengthen the leg by up to 1/2 inch. The 20 degree lipped Lincoln and Nephew R3 dyudno-gzduy-jwowxp polyethylene liner was inserted and tap ped securely into place. I then selected the Lincoln and Nephew Synergy stem and a size 13 with stand david offset. This was inserted press-fit and was a very tight fit. I did 1 final trial reduction an d confirmed that the +4 mm neck length with a 36 mm head was the proper combination. I selected a S mith and Nephew Oxinium head with an outside diameter 36 mm and a neck length of +4 mm. This was ta pped securely onto the clean trunnion. The acetabulum was irrigated and cleaned and the hip was red uced one final time. He had excellent anterior and posterior stability and a small amount of length ening. Then, 40 mL of the joint anesthetic cocktail was injected into the capsule, the deep musculature, an d the subcutaneous tissues around the skin edges. The joint was thoroughly irrigated one final time with a dilute Betadine solution. His sciatic nerve was reinspected and looked unharmed. The exter nal rotators and the posterior hip capsule were repaired in separate layers with #2 FiberWire suture s through drill holes in the greater trochanter. This provided a strong posterior capsular and exte rnal rotator repair. The fascia juan pablo was closed first with several interrupted fjdrls-le-hmvpk #2 F iberWire sutures, followed by a running #2 barbed Ethicon Stratafix PDO suture. The subcutaneous ti ssues were closed with a running 0 barbed Ethicon Stratafix Monoderm suture. The skin was closed wi th a running 3-0 barbed Ethicon Stratafix Monoderm subcuticular suture. The skin edges were reappro ximated and sealed with Dermabond glue. The wound was covered with a strip of Telfa, and everything was held in place with a piece of clear plastic Tegaderm. A long-leg ANT stocking and SCD were applied to his right lower extremity. He wore a stocking and a n SCD on the opposite leg during the procedure. An abduction pillow was placed between his knees. He was awakened from anesthesia and rolled to the supine position on his [facility]. He was ta treasure to the PACU in satisfactory condition. There were no recognized intraoperative complications. The estimated blood loss was about 400 mL. I used a Lincoln and Nephew R3 hemispherical solid-backed acetabular shell with an outside diameter of 58 mm. The liner was a Lincoln and nephew R3 20-degree lipped, mvxzix-sdaha-dedrxj liner with an ins cesilia diameter 36 mm. The femoral component was a press-fit Lincoln and Nephew standard offset Synergy stem in a size 13. The femoral head was a Lincoln and Nephew Oxinium head with a +4 mm neck length an d a 36 mm outside diameter. Tay Flores and John Teixeira acted as surgical assistants. Their assistance was a medical judith zarco. I did his left total hip arthroplasty several months ago. 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 I am going to arrange for him to have a single dose of postoperative radiation therapy to the right hip to minimize the risk of heterotopic ossifi cation on the right side. Copy requested to: Dennis Mendoza MD [address] [place] [address] /[id number]/MODL
[2017-02-27] MEDS ORDERED: fentaNYL 100 MCG/2 ML INJ ONE (12:25)
[2017-02-27] MEDS ORDERED: KETOROLAC 30 MG/1 ML SDV ONE (12:26)
[2017-02-27] MEDS ORDERED: oxyCODONE IR 5 MG TAB ONE (12:55)
[2017-02-27] MEDS ORDERED: POTASSIUM CL 20 MEQ TAB PO PRN (13:38)
[2017-02-27] MEDS: ceFAZolin 2 GM/DEXTROSE 100 ML IV SCH ×2 (14:50→21:31)
[2017-02-27] MEDS: TRANEXAMIC ACID 650 MG TAB PO SCH ×2 (15:07→23:52)
[2017-02-27] MEDS: ACETAMINOPHEN 325 MG TAB PO SCH ×3 (17:07→23:52)
[2017-02-27] MEDS: METHOCARBAMOL 750 MG TAB PO PRN (19:42)
[2017-02-27] MEDS: SENNOSIDES/DOCUSATE SODIUM TAB PO SCH (21:29)
[2017-02-27] MEDS: FAMOTIDINE 20 MG TAB PO SCH (21:30)
[2017-02-27] MEDS: morphINE SR 30 MG TAB PO SCH (21:30)
[2017-02-28] MEDS: ACETAMINOPHEN 325 MG TAB PO SCH ×2 (05:11→12:57)
[2017-02-28] MEDS: METHOCARBAMOL 750 MG TAB PO PRN ×2 (05:11→12:59)
[2017-02-28 05:18] LABS: HEMATOCRIT 43.6 % (40.0-51.0); HEMOGLOBIN 15.2 g/dL (13.7-17.5)
[2017-02-28] MEDS: TRANEXAMIC ACID 650 MG TAB PO SCH (06:03)
--- NOTE | 2017-02-28 07:32 | SOAPPROG ---
SOAP Progress Note Assessment/Plan: Assessment: Afebrile. Pain as expected. Up and walking. Voiding spont. Dsg is dry. H/H is good. Films look good. Sciatic nerve intact. Plan: One does of Rad therapy today for HO PT today. [place] [facility] later today. 02/28/17 07:31 Objective: Vital Signs Temp Pulse Resp BP Pulse Ox 36.9 C 92 16 157/89 H 93 02/28/17 00:00 02/28/17 00:00 02/28/17 00:00 02/28/17 00:00 02/28/17 00:00 Laboratory Results 02/28/17 04:59 02/27/17 02/28/17 03/01/17 05:59 05:59 05:59 Intake Total 4265 Output Total 2975 Balance 1290 ICD10 Worksheet Patient Problems: Problems Problem Status Onset Osteoarthritis of right hip Acute Osteoarthritis of left hip Acute Pulmonary embolus Acute
--- NOTE | 2017-02-28 07:34 | PDIAF ---
- Diagnosis Diagnosis: right hip OA Code Status: Full Code - Medication Management Discharge Medications: Medications to Continue on Transfer Furosemide [Lasix 20 MG (*)] 20 mg PO DAILY PRN 01/02/17 [Last Taken 02/24/17] Potassium Chloride [K-Tab ER] 20 meq PO DAILY PRN 01/02/17 [Last Taken 02/24/17] Testosterone [Androgel 1% pump] 1 lissette TD DAILY 01/02/17 [Last Taken 02/24/17] morphINE SR [MS Contin/Oramorph SR 30 mg (*)] 30 mg PO BID 01/02/17 [Last Taken 02/26/17 18:00] oxyCODONE IR [Oxycodone Ir (*)] 30 mg PO 5XD PRN 01/02/17 [Last Taken 02/27/17 05:30] Docusate Sodium [Colace 100 MG (*)] 200 mg PO QID 01/18/17 [Last Taken 02/26/17 08:00] Multivitamin W/Iron, Minerals [UNICAP SR] 1 each PO DAILY 01/18/17 [Last Taken 02/13/17] Methocarbamol [Robaxin 750 mg (*)] 750 mg PO Q6 PRN #60 tab 01/19/17 [Last Taken 02/25/17] Acetaminophen [Tylenol 325mg (*)] 650 mg PO Q6HRS #0 tab 02/28/17 [Last Taken Unknown] Enoxaparin [Lovenox 40 MG (*)] 40 mg SC DAILY #21 syr 02/28/17 [Last Taken Unknown] Ferrous Sulfate [Slow Fe 140 MG (*)] 140 mg PO DAILY #30 tab.er 02/28/17 [Last Taken Unknown] Ondansetron Odt [Zofran Odt 4 mg (*)] 4 mg PO Q4HRS PRN #0 tab 02/28/17 [Last Taken Unknown] traMADol [Ultram 50 mg (*)] 50 mg PO Q6HRS PRN #0 tab 02/28/17 [Last Taken Unknown] Discharge Medications: Refer to the Discharge Home Medication list for PRN reason. PICC Care - Routine: N/A - Orders Services needed: Physical Therapy (at SNF) Diet Recommendation: no restrictions on diet Diet Texture: Regular Texture Diet Chauhan: Not applicable Nam Stockings Discontinue Date: 1 week Wound Care Instructions: keep clean and dry. You may shower. Activity/Weight Bearing Restrictions: as tolerated. - Follow Up Care Current Providers and Referrals: SONAM NASCIMENTO [Other] Marvel Lopez MD [Medical Doctor] - 03/18/17 8:45 am
[2017-02-28] MEDS: morphINE SR 30 MG TAB PO SCH (07:44)
[2017-02-28] MEDS: SENNOSIDES/DOCUSATE SODIUM TAB PO SCH (07:44)
[2017-02-28] MEDS: FAMOTIDINE 20 MG TAB PO SCH (07:45)
--- NOTE | 2017-02-28 08:42 | GDS ---
[f rep st] DISCHARGE SUMMARY ADMISSION DIAGNOSIS: Right hip advanced degenerative. DISCHARGE DIAGNOSIS: Right hip advanced degenerative. TEST PERFORMED: 02/27/2017: Right total hip arthroplasty, Oxinium femoral head on highly cross-airam ked polyethylene cup liner. POSTOPERATIVE COMPLICATIONS: None. CONDITION ON DISCHARGE: Improved. DESCRIPTION OF HOSPITAL COURSE: The patient was admitted to the hospital on the morning of surgery. His admission hemoglobin and hematocrit were 13.3 and 39.3. The same day under combination of Mar keisha spinal and IV sedation, he underwent a right total hip arthroplasty. Postoperatively, he was treated with multimodal DVT prophylaxis, including Lovenox. He has a history of previous thromboemb olic disease. He has chronic pain since syndrome and takes large doses of narcotics at home. He re quired large doses of narcotics in the hospital. On the first postoperative day, he received a sing le dose of radiation therapy to the right hip area to decrease the risk of heterotopic ossification. He was seen by Physical Therapy, and made good progress with ambulation and stairs. On the first postoperative day, his hemoglobin and hematocrit were 15.2 and 43.6. DISPOSITION: The patient is transferred to [facility]. He will continue his normal pain management . He may progress to full weightbearing on the right as tolerated. Use an abduction pillow in bed for 3 weeks. Continue Lovenox 40 mg a day for 21 days. Use ANT stockings for 1 week. I will see h im back in the office in 3 weeks. If there are any problems, he is to call me at the office. Copy requested to: Dennis Menodza [place], [place] /[id number]/MODL
[2017-02-28] MEDS ORDERED: ENOXAPARIN 40 MG/0.4 ML SYR SC SCH (09:00)
[2017-02-28] MEDS ORDERED: TESTOSTERONE TD SCH (09:00)
[2017-02-28] MEDS ORDERED: FERROUS SULFATE 140 MG TAB.ER PO SCH (09:00)
[2017-02-28] MEDS ORDERED: MULTIVITAMINS W-MINERALS 1 EACH TAB PO SCH (09:00)
[2017-02-28 09:13] VITALS: RESP 18
[2017-02-28 13:19] VITALS: BP 144/95; PULSE 81; TEMP 97.4; O2SAT 94
== END 2017-02-28 17:00 | DRG 470 ==
LOC: F3N 02-27 07:28
PROVIDERS: ADMIT Orthopaedic Surgery; ATTEND Orthopaedic Surgery
PROC: 0SR904Z Replacement of Right Hip Joint with Ceramic on Polyethylene Synthetic Substitute, Open Approach (ICD-10-PCS; principal; 2017-02-27 09:45)
DX: M16.11 Unilateral primary osteoarthritis, right hip (principal); G89.29 Other chronic pain; M54.9 Dorsalgia, unspecified; Z86.711 Personal history of pulmonary embolism; Z96.652 Presence of left artificial knee joint
CPT/HCPCS: 97161-GP; 97165-GO; G8978-GP-CJ; G8979-GP-CJ; G8980-GP-CJ; G8987-GO-CI; G8988-GO-CI; G8989-GO-CI; J0171; J0690; J1100; J1650; J1885; J2250; J2370; J2550; J2704; J2795; J3010